=== PATIENT | male | born 1965 | race Caucasian/White ===

== ENCOUNTER → 2021-10-04 14:26 | Outpatient (CLI) | payer BC, SELFPAY ==
--- NOTE | ~2021-10-04 | XR_ITS ---
EXAM: XR lumbar spine min 4V DATE: 10/04/2021 15:17 HISTORY: Muscle pain . COMPARISON: None available. FINDINGS: 5 nonrib-bearing lumbar-type vertebral bodies. Pedicles intact. Normal vertebral body alig nment. Vertebral body heights preserved. Mild disc space narrowing at L1-2 and L4-5, otherwise mainta ined disc spaces maintained. Normal facets and posterior elements. No fracture or dislocation. Minima l 1 to 2 mm anterolisthesis of L4 on L5 in flexion. Minimal 1 to 2 mm retrolisthesis of L1 on L2 that reduces in neutral and flexion. IMPRESSION: Mild degenerative disc disease at L1-2 and L4-5 with a mild grade 1 dynamic listheses. Reviewed, dictated and finalized at location K.
--- NOTE | ~2021-10-04 | CT_ITS ---
EXAMINATION: CT abdomen pelvis w con DATE: 10/04/2021 15:16 INDICATION: Abdominal pain TECHNIQUE: Computed tomography (CT) of the abdomen and pelvis was performed with 100 mL Omnipaque-300 intravenous contrast. Automated exposure control and iterative reconstruction technique were employe d. The dose-length product was 324.51 mGy-cm. COMPARISON: 07/22/2010 FINDINGS: Lung bases are clear. Heart size is normal. No pericardial or pleural effusion. Liver, gallbladder, s pleen, pancreas and bilateral adrenal glands are normal. Bilateral renal cysts the largest on the rig ht measuring 1.4 cm. Bowels including the appendix are normal. Bladder is normal. Small bilateral hyd roceles with chronic small loculated fluid collection measuring 2.8 x 1.7 cm along the right inguinal canal which can be seen on the study from 11 years prior. No free intraperitoneal gas or fluid. No p athologically enlarged abdominal or pelvic lymphadenopathy. Moderate lower thoracic and mild lumbar s pondylosis. IMPRESSION: 1. No acute intra-abdominal/pelvic process. 2. Small bilateral hydroceles and chronic small loculated fluid collection along the right inguinal c anal. Reviewed, dictated and finalized at location B. IMPRESSION: 1. No acute intra-abdominal/pelvic process. 2. Small bilateral hydroceles and chronic small loculated fluid collection cheyanne g the right inguinal canal.
== END ==
PROVIDERS: PCP Internal Medicine; Visit Provider Internal Medicine
DX: R10.9 Unspecified abdominal pain (principal); N43.3 Hydrocele, unspecified
CPT/HCPCS: 72110; 74177; Q9967

== ENCOUNTER 2021-12-22 01:22 | Day surgery (SDC) | payer BC, SELFPAY ==
[2021-12-13 08:59] VITALS: BMI 22.8
--- NOTE | 2021-12-21 14:50 | PM.HPGS ---
History of Present Illness History of Present Illness Consent: Risks, benefits, and alternatives have been discussed and questions answered. Patient agrees to proceed with procedure. Chief complaint: abdominal pain, hx colon polyps, epigastric pain Narrative: Murali Pacheco is a 56 year old male who is referred by his PCP Dr. Salguero for abdominal pain.? His past medical history of basal cell skin cancer, hyperlipidemia and anxiety.? He states that he has always been a ?nervous ki .? He was diagnosed with irritable bowel syndrome in the s.? He complains of left upper quadrant abdominal discomfort that he has had for 20-30 years but over the last year he has noticed it worse when lying on his left side.? If he does report over the last several months he has been having epigastric burning around 1 hour after eating or straining with bowel movements-he states he does not feel like this ever goes away but can increase in intensity.? He denies any nausea or vomiting with this.? A CT scan of the abdomen was negative done a couple months ago. He had a colonoscopy about 6 years ago with removal of what was thought to be a polyp.. Review of Systems Review of Systems: All systems reviewed & are unremarkable except as noted in HPI and below PMFSH Family History Family History Mother Family history of type 2 diabetes mellitus Other Malignant neoplasm of prostate Social History Social History Smoking status: Never smoker Alcohol intake: current Drinks per week: 1 Alcohol use details: BEER Substance use: never Substance use type: does not use Living arrangements: with family Spiritual care concerns: No Meds Home Medications and Allergies Home Medications Medication Instructions Recorded Confirmed Type multivitamin 1 tablet PO DAILY 10/25/21 12/13/21 History omeprazole 40 mg capsule,delayed 40 mg PO DAILY #30 caps 10/25/21 12/13/21 Rx release [facility] 1 dose PO DAILY 12/13/21 12/13/21 History citalopram 40 mg tablet 40 mg PO DAILY 12/13/21 12/13/21 History clonazepam 0.5 mg tablet 0.5 mg PO DAILY PRN Anxiety 12/13/21 12/13/21 History simvastatin 10 mg tablet 10 mg PO DAILY 12/13/21 12/13/21 History wheat dextrin 1 gram tablet 1 g PO BID 12/13/21 12/13/21 History Allergies Allergy/AdvReac Type Severity Reaction Status Date / Time naldecon Allergy Mild Unknown Uncoded 12/22/21 11:15 Exam Const: General: alert Orientation/consciousness: patient oriented x3 Resp: Auscultation: clear to auscultation bilaterally Cardio: Rhythm: regular rhythm GI: GI Palp: Yes Soft to palpation and No Tenderness to palpation present (GI) Neuro: General: patient oriented x3 Assessment and Plan Assessment and plan (1) Left upper quadrant abdominal pain: Code(s): R10.12 - Left upper quadrant pain Status: Acute Assessment and Plan: EGD with possible biopsy or dilatation or cautery. (2) Colon cancer screening: Code(s): Z12.11 - Encounter for screening for malignant neoplasm of colon Status: Acute Assessment and Plan: Colonoscopy with possible biopsy or polypectomy or cautery or injection of substances.
[2021-12-22 11:16] VITALS: BP 138/60; PULSE 87; RESP 18; TEMP 36.2; O2SAT 99
[2021-12-22] MEDS: LACTATED RINGERS 1,000 ML 150 ML IV CONT (11:20)
--- NOTE | 2021-12-22 11:35 | P.PNAN_ITS ---
Anes - Initial Pre Proc Eval Procedure: Operation Date: 12/22/21 12:30 Proposed Procedures p Esophagogastroduodenoscopy & Colonoscopy - Aston Mcdonald MD Date/Time: 12/22/21 11:35 Surgeon: Aston Mcdonald MD Pre Op Diagnosis: abdominal pain, hx colon polyps, epigastric pain Patient Data Age: 56 Gender: M Height: 1.7 m Weight: 65.9 kg Last Vital Signs Temp 97.2 F L 12/22/21 11:16 Pulse 87 12/22/21 11:16 Resp 18 12/22/21 11:16 BP 138/60 12/22/21 11:16 Pulse Ox 99 12/22/21 11:16 O2 Del Method Room Air 12/22/21 11:16 Allergies Allergy/AdvReac Type Severity Reaction Status Date / Time naldecon Allergy Mild Unknown Uncoded 12/22/21 11:15 Home Medications Medication Instructions Recorded Confirmed Type multivitamin 1 tablet PO DAILY 10/25/21 12/13/21 History omeprazole 40 mg capsule,delayed 40 mg PO DAILY #30 caps 10/25/21 12/13/21 Rx release [facility] 1 dose PO DAILY 12/13/21 12/13/21 History citalopram 40 mg tablet 40 mg PO DAILY 12/13/21 12/13/21 History clonazepam 0.5 mg tablet 0.5 mg PO DAILY PRN Anxiety 12/13/21 12/13/21 History simvastatin 10 mg tablet 10 mg PO DAILY 12/13/21 12/13/21 History wheat dextrin 1 gram tablet 1 g PO BID 12/13/21 12/13/21 History Patient hx anesthesia problems: none Family hx anesthesia problems: none Results Review: All pre-operative results and documents have been reviewed as part of the pre- operative evaluation. [facility], [facility] Family History Family History Mother Family history of type 2 diabetes mellitus Other Malignant neoplasm of prostate Social History Social History Smoking status: Never smoker Alcohol intake: current Drinks per week: 1 Alcohol use details: BEER Substance use: never Substance use type: does not use Living arrangements: with family Spiritual care concerns: No Anes - Eval Final PreProcedure Day of Procedure 12/22/21 11:35 Patient weight: normal Heart: regular rate and rhythm Lungs: clear to auscultation Airway: Mallampati scale class II Neurological: alert and oriented Last oral intake: >/= 8 hours ASA classification: II Emergent: no Anesthetic plan: proceed Anesthesia type and monitoring: general GIVS and standard monitoring Results Review: All pre-operative results and documents have been reviewed as part of the pre- operative evaluation. Informed Consent: The patient's anesthetic plan and its attendant risks and benefits were discussed with the patient/family/POA. Questions were solicited and answers provided to the satisfaction of the patient/family/POA.
[2021-12-22 12:18] VITALS: BP 114/94; PULSE 72; RESP 16; O2SAT 100
--- NOTE | 2021-12-22 12:18 | SUR.OPER ---
EGD START: 1154; END: 1157. COLONOSCOPY START: 1204; END: 1214.
[2021-12-22 12:28] VITALS: BP 97/57; PULSE 71; RESP 18; O2SAT 100
[2021-12-22 12:38] VITALS: BP 107/65; PULSE 67; RESP 18; O2SAT 100
== END 2021-12-22 12:54 | disposition home or self-care (01) ==
PROVIDERS: PCP Internal Medicine; Visit Provider Internal Medicine Gastroenterology
PROC: 0DJ08ZZ Inspection of Upper Intestinal Tract, Via Natural or Artificial Opening Endoscopic (ICD-10-PCS; CPT 43235; principal; 2021-12-22 12:30)
DX: R19.4 Change in bowel habit (principal); Z86.010 Personal history of colon polyps; K21.9 Gastro-esophageal reflux disease without esophagitis; K58.9 Irritable bowel syndrome, unspecified; K44.9 Diaphragmatic hernia without obstruction or gangrene; R10.9 Unspecified abdominal pain; R10.13 Epigastric pain
CPT/HCPCS: 45378; 43239; 88305; J2704; J7120

== ENCOUNTER → 2022-01-20 14:00 | Outpatient (CLI) | payer BC, SELFPAY ==
--- NOTE | ~2022-01-20 | US_ITS ---
EXAMINATION: US scrotum doppler DATE: 01/20/2022 14:29 INDICATION: Abnormal left testicle on physical exam. TECHNIQUE: Testicular sonogram utilizing grayscale and Doppler COMPARISON: 08/15/2018 FINDINGS: The right testis measures 5.0 x 2.6 x 3.4 cm. The left testis measures 5.2 x 2.5 x 3.5 cm. Symmetric normal grayscale appearance to both testes. There is normal vascular flow to both testes. The right e pididymis is normal with normal vascular flow. Couple anechoic left epididymal cyst measuring 5 mm an d 4 mm in maximal diameters. The left epididymis is otherwise normal with normal vascular flow. There is no varicocele. Small bilateral hydroceles.. IMPRESSION: 1. Normal bilateral testes. 2. Small bilateral hydroceles and a couple 5 mm and 4 mm left epididymal cyst. Reviewed, dictated and finalized at location A.
== END ==
PROVIDERS: Visit Provider Internal Medicine
DX: M79.10 Myalgia, unspecified site (principal); N50.9 Disorder of male genital organs, unspecified; N43.3 Hydrocele, unspecified
CPT/HCPCS: 76870; 93976

== ENCOUNTER → 2023-07-14 11:02 | Outpatient (CLI) | payer BC, SELFPAY ==
--- NOTE | ~2023-07-14 | XR_ITS ---
EXAM: XR shoulder RT min 2V DATE: 07/14/2023 11:30 HISTORY: pain in right shoulder . COMPARISON: None available. FINDINGS: Normal mineralization. No fracture or dislocation. No lytic or blastic lesion. Mild degene rative change in the AC joint and glenohumeral joint. No erosion or periosteal change. Soft tissues w ithin normal limits. 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 Reviewed, dictated and finalized at location K. [employer]
== END ==
PROVIDERS: PCP Internal Medicine; Visit Provider Internal Medicine
DX: M25.511 Pain in right shoulder (principal); M19.011 Primary osteoarthritis, right shoulder
CPT/HCPCS: 73030